=== PATIENT | male | born 2000 | race Caucasian/White ===

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

== ENCOUNTER 2023-05-26 16:50 | Emergency (ER) | payer OTHER ==
[~2023-05-26] VITALS: Ht 172.7 cm; Wt 84.4 kg
[~2023-05-26 16:50] MED LIST changes: +CRUTCH1 EACH MISC; +ULTRAM50 MG PO
--- OUTSIDE RECORDS SUMMARY | 2023-05-26 16:53 | XMS ---
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 ED/UCC VISIT TRACKING (12 MO.) 05/26/2023 16:50 [facility] [place] TYPE: Emergency COMPLAINT: - SUICIDAL IDEATIONS INPATIENT VISIT TRACKING (12 MO.) No inpatient visits to display in this time frame [email or web address]
[2023-05-26 18:17] VITALS: BP 148/78
== END 2023-05-26 18:38 | disposition home or self-care (01) ==
LOC: ED 16:50
DX: F25.9 Schizoaffective disorder, unspecified (principal); R45.851 Suicidal ideations; Z88.8 Allergy status to other drugs, medicaments and biological substances
CPT/HCPCS: 80053; 84443; 85025; 99284; G0480

== ENCOUNTER 2025-01-20 22:21 | Emergency (ER) | payer OTHER ==
[~2025-01-20] VITALS: Ht 167.6 cm; Wt 94.8 kg
[2025-01-21 00:34] VITALS: BP 144/84
== END 2025-01-21 00:38 | disposition home or self-care (01) ==
LOC: ED 22:21
DX: S63.502A Unspecified sprain of left wrist, initial encounter (principal); X50.9XXA Other and unspecified overexertion or strenuous movements or postures, initial encounter; Z79.899 Other long term (current) drug therapy
CPT/HCPCS: 73110; 99283